=== PATIENT | female | born 1990 | race Caucasian/White ===

== ENCOUNTER 2022-05-15 13:30 | Emergency (ER) | payer OTHER ==
[~2022-05-15] VITALS: Ht 182.9 cm; Wt 170.9 kg
[~2022-05-15 13:30] MED LIST: ASPIRIN E.C. 8181 MG PO; CELEXA40 MG PO; FIORICET 325 MG1 TA1 PO; GLUCOPHAGE500 MG/TAB PO; NITRO-DUR0.2 MG/PAT TD; NORVASC 5MG5 MG/TAB PO; PRAVACHOL 20MG20 MG PO; VASERETIC 10 MG1 TAB PO
[2022-05-15 14:09] VITALS: TEMP 98.1
[2022-05-15 17:41] LABS: BASO % 0.4 % (0.0-2.0); EOS # 0.2 K/mm3 (0.0-0.7); EOS % 2.3 % (0.0-4.0); GRAN # 6.4 K/mm3 (1.4-6.5); GRAN % 64.7 % (42.2-75.2); HEMATOCRIT 38.2 % (37.0-47.0); HEMOGLOBIN 12.1 g/dl (12.5-16.0); LYMPH # 2.5 K/mm3 (1.2-3.4); LYMPH % 25.6 % (20.0-51.0); MEAN CELL VOLUME 76 fl (80.0-100.0); MEAN CORPUSCULAR HEMOGLOBIN 24 pg (27-31); MEAN CORPUSCULAR HGB CONC 32 g/dl (33.0-37.0); MEAN PLATELET VOLUME 9.9 fl (7.4-10.4); MONO # 0.7 K/mm3 (0.1-0.6); MONO % 6.7 % (1.7-9.3); PLATELET COUNT 353 K/mm3 (130-400); REDCELL DISTRIBUTION WIDTH-CV 14.5 % (11.5-14.5)
[2022-05-15 17:56] LABS: ALBUMIN 3.5 gm/dL (3.5-5.0); BILIRUBIN,TOTAL 0.3 mg/dL (0.2-1.2); CALCIUM 8.9 mg/dL (8.4-10.2); CREATININE, serum 0.86 mg/dL (0.57-1.11); POTASSIUM 3.6 mmol/L (3.5-4.5); TOTAL PROTEIN 7.9 gm/dL (6.2-8.1)
[2022-05-15] MEDS ORDERED: NORCO 325 MG-51 TAB PO ×3 (18:23→19:56)
[2022-05-15] MEDS ORDERED: MOTRIN 800800 MG/TAB PO ×3 (18:23→19:56)
[2022-05-15 19:10] VITALS: BP 122/78; PULSE 92
[2022-05-15] MEDS ORDERED: DORYX100 PO (19:55)
== END 2022-05-15 19:10 | disposition home or self-care (01) ==
LOC: COL.ER 13:30
PROVIDERS: Nurse Practitioner Primary Care
DX: L03.113 Cellulitis of right upper limb (principal); Z88.0 Allergy status to penicillin
CPT/HCPCS: J2270